=== PATIENT | male | born 2000 | race Caucasian/White ===

== ENCOUNTER 2024-02-21 13:12 | Emergency (ER) | payer SELFPAY ==
[2024-02-21 13:15] VITALS: BP 138/89; PULSE 84; RESP 18; TEMP 36.6; O2SAT 100
--- NOTE | 2024-02-21 13:33 | PC.NURSE ---
After ERP and nursing assessment, pt not wanting anything done, he states he was drinking alcohol today and is currently A&O x3, he has family in waiting room to drive him home. Pt wanting to sign AMA to leave. Paperwork for AMA will be signed and pt d/c home w/ family.
--- NOTE | 2024-02-21 13:34 | ED.GENADULT ---
HPI - General Adult General Chief complaint: Alcohol Stated complaint: unresponsive Time Seen by Provider: 02/21/24 13:16 Source: patient and EMS Mode of arrival: EMS Limitations: no limitations History of Present Illness HPI narrative: this is a 23-year-old male that presents via EMS after he was found at the [facility] in his vehicle passed out police were on the scene apparently sternal rub was performed and the patient eventually became responsive and brought in by EMS. Patient is currently alert oriented and states that I had a long shift and has been over worked and has had some alcohol. Otherwise no injuries no nausea vomiting no shortness of breath no chest pain no fever chills. Onset (ago): hour(s) Review of Systems Review of Systems: All systems reviewed & are unremarkable except as noted in HPI and below PMFSH Past Medical History Medical History Patient denies medical problems Exam Const: General: no acute distress Nutritional Appearance: well nourished Orientation/consciousness: patient oriented x3 Limitations: no limitations HENMT: Head: normal to inspection Eyes: Conjunctivae: conjunctivae normal Pupils: Equal, round and reactive pupils present Neck: Neck: normal visual inspection and no lymphadenopathy Chest: Chest palpation & inspection: normal inspection of the chest Resp: Effort & Inspection: normal respiratory effort Auscultation: clear to auscultation bilaterally Cardio: Rate: regular rate Rhythm: regular rhythm GI: GI Palp: Yes Soft to palpation Auscultation: normal bowel sounds Urinary Catheter: Urinary Catheter: patent and draining Back/Spine/Pelvis: Back: no CVA tenderness Skin: General skin exam: normal color Rashes: no rashes Neuro: General: patient oriented x3, moves all extremities, no meningeal signs and no focal motor deficits Extrem: General: normal to inspection and no clubbing, cyanosis or edema Course Course Emergency Course: Patient apparently feels that he is doing well and refuses any treatment or any blood work and is requesting to sign out against medical advice. Transfer Transfer comments: patient wishes to sign out against medical advise Discharge Plan Discharge Clinical Impression: Alcoholic intoxication Patient Disposition: Left Against Medical Advice Condition: Stable Instructions: Alcohol Intoxication (ED) Additional Instructions: advised close follow-up with his primary. Follow-up/Referrals: UNKNOWN,DOCTOR [Primary Care Provider] - Time of Disposition: 13:38
--- NOTE | 2024-02-21 13:47 | PC.NURSE ---
Pt signed AMA paperwork and not wanting anything els done, officer from [employer] here to speak w/ pt. He signed AMA and left w/ police.
[2024-02-21 13:48] VITALS: BP 140/88; PULSE 100; RESP 20; O2SAT 99
== END 2024-02-21 13:48 | disposition left against medical advice (07) ==
LOC: CHSED 13:45
PROVIDERS: Emergency Provider Emergency Medicine
DX: F10.129 Alcohol abuse with intoxication, unspecified (principal); Y90.9 Presence of alcohol in blood, level not specified
CPT/HCPCS: 99283